=== PATIENT | female | born 1995 | race African-American/Black ===

== ENCOUNTER 2017-03-01 22:30 | Emergency (ER) | payer OTHER ==
[~2017-03-01] VITALS: Ht 154.9 cm; Wt 72.1 kg
[2017-03-01 23:19] LABS: HEMATOCRIT 40.8 % (36.0-46.0); MCH 27.6 PG (29.0-34.0); MCHC 32.1 G/DL (30.0-36.0); MCV 86.1 FL (83-99); MEAN PLAT.VOLUME 9.9 uM^3 (9.5-12.4); PLATELET COUNT 267 K/uL (156-360); RBC DIS.WIDTH-CV 13.4 % (11.8-14.6); RED BLOOD COUNT 4.74 M/uL (3.80-5.20); WHITE BLOOD COUNT 6.2 K/uL (4.1-10.2)
[2017-03-01 23:32] LABS: CHLORIDE 105 mEq/L (99-109); SODIUM 140 mEq/L (136-147)
[2017-03-01 23:34] LABS: GLUCOSE 113 mg/dL (70-99)
[2017-03-01 23:35] LABS: ANION GAP 8 MEQ/L (2-14)
[2017-03-01 23:36] LABS: TOTAL BILIRUBIN 0.2 mg/dL (0.0-1.0)
[2017-03-01 23:37] LABS: ALKALINE PHOSPHATASE 49 IU/L (3-129)
[2017-03-01 23:38] LABS: GFR ESTIMATE (CALCULATED) > 59 mL/min/
[2017-03-01 23:39] LABS: UREA NITROGEN (BUN) 11 mg/dL (9-23)
[2017-03-01 23:46] LABS: QUANTITATIVE HCG < 4.0 MIU/ML
[2017-03-02 02:24] LABS: ADD MIUA? YES; BILIRUBIN NEGATIVE; BLOOD MODERATE; COLOR YELLOW ((YELLOW)); GLUCOSE (STRIP) NEGATIVE; KETONES 5; LEUKOCYTES TRACE; NITRITE NEGATIVE; PROTEIN (STRIP) 30; UROBILINOGEN 0.2 MG/DL (0.2-1.0)
[2017-03-02 02:55] LABS: BACTERIA 1+ /HPF; CASTS NONE SEEN /LPF; CRYSTALS NONE SEEN; EPITHELIAL CELLS 2+ /HPF; MUCUS 3+ /LPF; UCUL ADDED? NO; WHITE BLOOD CELLS 0-5 /HPF (0-5)
[2017-03-02] MEDS ORDERED: BACTRIM,SEPT1 TABLET PO (02:57)
[2017-03-02 03:07] VITALS: BP 128/78
== END 2017-03-02 03:09 | disposition home or self-care (01) ==
LOC: EXP 22:30 → EME 22:30 → EXP 03-02 03:09
DX: N83.209 Unspecified ovarian cyst, unspecified side (principal); N39.0 Urinary tract infection, site not specified; N93.8 Other specified abnormal uterine and vaginal bleeding
CPT/HCPCS: 76856; 80053; 81003; 84702; 85027; 99281; 99284